=== PATIENT | female | born 1955 | race Caucasian/White ===

== ENCOUNTER 2023-12-20 13:34 | Outpatient (CLI) | payer OTHER | END 2023-12-20 13:35 | disposition home or self-care (01) | LOC: CSHRAD 13:34 | PROVIDERS: ATTEND Surgery | DX: R10.13 Epigastric pain (principal); Z98.84 Bariatric surgery status | CPT/HCPCS: 74246 ==

== ENCOUNTER 2023-12-28 07:33 | Day surgery (SDC) | payer OTHER ==
[2023-12-26 14:09] VITALS: BMI 21.4
[2023-12-28 09:08] LABS: Hematocrit 31.5 % (34.9-44.5); Hemoglobin 9.8 g/dL (12.0-15.5); Mean Corpuscular HGB CONC 31.1 g/dL (32.0-36.0); Mean Corpuscular Hemoglobin 25.7 pg (27.0-33.0); Mean Corpuscular Volume 82.7 fL (81.6-98.3); Mean Platelet Volume 9.5 fL (7.4-10.4); Platelet Count 257 10x3/uL (150-450); RBC Distribution Width 15.3 % (11.5-14.5); Red Blood Cell (RBC) Count 3.81 10x6/uL (3.90-5.03); White Blood Cell (WBC) Count 6.6 10x3/uL (3.5-10.5)
[2023-12-28 09:19] LABS: Anion Gap 13 mmol/L (10-20); BUN (Urea Nitrogen) 12 mg/dL (9.8-20.1); Calc. Creatinine Clearance 54 mL/min (70-130); Calcium 9.8 mg/dL (7.8-10.44); Carbon Dioxide 28 mmol/L (23-31); Chloride 103 mmol/L (98-107); Estimated GFR 67; Glucose 98 mg/dL (80-115); Potassium 4.1 mmol/L (3.5-5.1); Sodium 140 mmol/L (136-145)
== END 2023-12-28 11:05 | disposition home or self-care (01) ==
LOC: CSHSDC 07:33
PROVIDERS: ATTEND Surgery
PROC: 0DB68ZX Excision of Stomach, Via Natural or Artificial Opening Endoscopic, Diagnostic (ICD-10-PCS; principal; 2023-12-28)
DX: K29.50 Unspecified chronic gastritis without bleeding (principal); R10.13 Epigastric pain; I25.10 Atherosclerotic heart disease of native coronary artery without angina pectoris; F41.9 Anxiety disorder, unspecified; E03.9 Hypothyroidism, unspecified; D64.9 Anemia, unspecified; R73.03 Prediabetes; J45.909 Unspecified asthma, uncomplicated; I10 Essential (primary) hypertension; Z90.49 Acquired absence of other specified parts of digestive tract; Z90.89 Acquired absence of other organs; Z98.84 Bariatric surgery status; Z88.8 Allergy status to other drugs, medicaments and biological substances; Z79.02 Long term (current) use of antithrombotics/antiplatelets; Z90.710 Acquired absence of both cervix and uterus
CPT/HCPCS: 80048; 85027; 88305

== ENCOUNTER 2024-01-08 10:55 | Observation (INO) | payer OTHER ==
[~2024-01-08 10:55] MED LIST: Iopamidol 370 76% 100 ML VIAL ONE
[2024-01-08] MEDS ORDERED: Ondansetron PF 4 MG/2 ML Vial ONE (11:23)
[2024-01-08 11:55] LABS: #Basophils 0.04 10x3/uL (0.0-0.2); #Monocytes 0.49 10x3/uL (0.0-1.1); #Neutrophils 2.74 10x3/uL (1.5-8.4); %Basophils 0.8 % (0.0-2.0); %Eosinophils 2.1 % (0.0-6.0); %Lymphocytes 30.2 % (18.0-47.0); %Monocytes 10.1 % (0.0-10.0); %Neutrophils 56.6 % (40.0-75.0); Hematocrit 29.7 % (34.9-44.5); Mean Corpuscular HGB CONC 30.3 g/dL (32.0-36.0); Mean Corpuscular Hemoglobin 25.4 pg (27.0-33.0); Mean Corpuscular Volume 83.7 fL (81.6-98.3); Mean Platelet Volume 10.3 fL (7.4-10.4); Platelet Count 246 10x3/uL (150-450); RBC Distribution Width 15.3 % (11.5-14.5); Red Blood Cell (RBC) Count 3.55 10x6/uL (3.90-5.03); White Blood Cell (WBC) Count 4.8 10x3/uL (3.5-10.5)
[2024-01-08 12:07] LABS: ALT (SGPT) 14 U/L (8-55); AST (SGOT) 20 U/L (5-34); Albumin 3.3 g/dL (3.4-4.8); Alkaline Phosphatase 102 U/L (40-110); Anion Gap 12 mmol/L (10-20); BUN (Urea Nitrogen) 8 mg/dL (9.8-20.1); Bilirubin, Total 0.4 mg/dL (0.2-1.2); Calc. Creatinine Clearance 0 mL/min (70-130); Calcium 9.1 mg/dL (7.8-10.44); Carbon Dioxide 27 mmol/L (23-31); Chloride 105 mmol/L (98-107); Estimated GFR 71; Globulin 3.1 g/dL (2.4-3.5); Glucose 97 mg/dL (80-115); Potassium 3.1 mmol/L (3.5-5.1); Protein, Total 6.4 g/dL (5.8-8.1); Sodium 141 mmol/L (136-145)
[2024-01-08] MEDS ORDERED: Meclizine HCl 25 MG TAB ONE (12:19)
[2024-01-08 16:20] VITALS: BMI 22.3
[2024-01-08] MEDS ORDERED: Ondansetron PF 4 MG/2 ML Vial IVP PRN (16:39)
[2024-01-08] MEDS ORDERED: Ketorolac Tromethamine 30 MG (1 mL) VIAL IVP PRN (16:40)
[2024-01-08] MEDS: Potassium Chloride 20 MEQ TAB PO SCH (17:35)
[2024-01-08] MEDS: Sodium Chloride 0.9% 1,000 ML IV SCH (17:35)
[2024-01-08] MEDS: Acetaminophen 325 MG TAB PO SCH (20:18)
[2024-01-08] MEDS: Ibuprofen 800 MG TAB PO SCH (22:12)
[2024-01-09 03:39] LABS: #Basophils 0.04 10x3/uL (0.0-0.2); #Eosinophils 0.22 10x3/uL (0.0-0.5); #Monocytes 0.58 10x3/uL (0.0-1.1); %Basophils 0.7 % (0.0-2.0); %Eosinophils 3.6 % (0.0-6.0); %Lymphocytes 36.5 % (18.0-47.0); %Monocytes 9.5 % (0.0-10.0); %Neutrophils 49.4 % (40.0-75.0); Hematocrit 27.5 % (34.9-44.5); Hemoglobin 8.4 g/dL (12.0-15.5); Mean Corpuscular HGB CONC 30.5 g/dL (32.0-36.0); Mean Corpuscular Hemoglobin 25.8 pg (27.0-33.0); Mean Corpuscular Volume 84.4 fL (81.6-98.3); Mean Platelet Volume 9.9 fL (7.4-10.4); Platelet Count 222 10x3/uL (150-450); RBC Distribution Width 15.4 % (11.5-14.5); Red Blood Cell (RBC) Count 3.26 10x6/uL (3.90-5.03); White Blood Cell (WBC) Count 6.1 10x3/uL (3.5-10.5)
[2024-01-09 04:03] LABS: Anion Gap 12 mmol/L (10-20); BUN (Urea Nitrogen) 13 mg/dL (9.8-20.1); Calc. Creatinine Clearance 58 mL/min (70-130); Calcium 8.3 mg/dL (7.8-10.44); Carbon Dioxide 25 mmol/L (23-31); Chloride 110 mmol/L (98-107); Estimated GFR 73; Glucose 94 mg/dL (80-115); Potassium 4.5 mmol/L (3.5-5.1); Sodium 142 mmol/L (136-145)
[2024-01-09] MEDS: Acetaminophen 500 MG TAB PO PRN (08:50)
[2024-01-09] MEDS: Enoxaparin 40 MG (0.4 mL) SYRINGE SC SCH (08:51)
[2024-01-09 10:33] LABS: Iron 18 ug/dL (50-170); Iron Binding Capacity, Total 358 mcg/dL (265-497)
[2024-01-09] MEDS: HYDROcodone/Acetaminophen 5/325 mg Tablet PO SCH (14:02)
[2024-01-09] MEDS: Ibuprofen 800 MG TAB PO SCH (16:21)
[2024-01-09] MEDS: Ferrous Sulfate 325 MG TAB PO SCH (16:22)
[2024-01-09] MEDS: diphenhydrAMINE 50 MG/ML VIAL IVP SCH (16:25)
[2024-01-09] MEDS: Metoclopramide HCl 10 MG (2 mL) VIAL IVP SCH (16:25)
[2024-01-09] MEDS: Atorvastatin Calcium 20 MG TAB PO SCH (21:03)
[2024-01-09] MEDS: Carvedilol 12.5 MG TAB PO SCH (21:03)
[2024-01-09] MEDS: Clopidogrel Bisulfate 75 MG TAB PO SCH (21:03)
[2024-01-09] MEDS: Morphine 2 MG/ML VIAL SLOW IVP PRN (21:09)
[2024-01-10] MEDS: Levothyroxine Sodium 125 MCG TAB PO SCH (06:51)
[2024-01-10] MEDS ORDERED: Lorazepam 0.5 MG TAB PO PRN (08:53)
[2024-01-10] MEDS: Venlafaxine HCl XR 75 MG CAP PO SCH (09:40)
[2024-01-10] MEDS: Folic Acid 1 MG TAB PO SCH (09:40)
[2024-01-10] MEDS ORDERED: Gabapentin 300 MG CAP PO SCH ×2 (13:00→18:00)
[2024-01-10 13:10] VITALS: BP 128/64; TEMP 97.9
== END 2024-01-10 13:34 | disposition home or self-care (01) ==
LOC: CSHERS 10:55 → CSHTELE 13:33
PROVIDERS: ADMIT Internal Medicine; ATTEND Hospitalist
DX: I10 Essential (primary) hypertension (principal); R42 Dizziness and giddiness; E03.9 Hypothyroidism, unspecified; D86.9 Sarcoidosis, unspecified; R26.9 Unspecified abnormalities of gait and mobility; E87.6 Hypokalemia; D64.9 Anemia, unspecified; R51.9 Headache, unspecified; Z79.51 Long term (current) use of inhaled steroids; Z79.899 Other long term (current) drug therapy; Z98.890 Other specified postprocedural states; Z95.1 Presence of aortocoronary bypass graft; Z90.89 Acquired absence of other organs; Z79.02 Long term (current) use of antithrombotics/antiplatelets; Z88.5 Allergy status to narcotic agent; Z88.8 Allergy status to other drugs, medicaments and biological substances; Z88.1 Allergy status to other antibiotic agents; Z79.890 Hormone replacement therapy
CPT/HCPCS: 36415; 70450; 70496; 72125; 80048; 80053; 82728; 83540; 83550; 85025; 93005; 96372; 96374; G0378; J1200; J1650; J2272; J2405; J2765; J7030; Q9967